=== PATIENT | male | born 1940 | race Caucasian/White ===

== ENCOUNTER 2021-02-06 10:49 | Day surgery (SDC) | payer MEDICARE, BC ==
[~2021-02-06] VITALS: Ht 185.4 cm; Wt 108.1 kg
[2021-02-06] VITALS (10 sets, daily range): BP systolic 120–182; BP diastolic 51–80
[2021-02-06] MEDS ORDERED: normal saline 1,000 ML IV SCH (11:25)
[2021-02-06] MEDS ORDERED: diphenhydrAMINE 25mg capsule PO PRN (11:25)
[2021-02-06] MEDS ORDERED: fenofibrate PO (11:51)
[2021-02-06] MEDS ORDERED: ROSU40TA PO (11:51)
[2021-02-06] MEDS ORDERED: HYDR-3965 PO (11:51)
[2021-02-06] MEDS ORDERED: OMEP20TA23 PO (11:51)
[2021-02-06] MEDS ORDERED: LISI20TA28 PO (11:51)
[2021-02-06] MEDS ORDERED: FLO0.4C PO (11:51)
[2021-02-06 12:12] LABS: BASOPHILS # (AUTO) 0.1 X10'3 (0-0.2); BASOPHILS % (AUTO) 0.8 % (0-1); EOSINOPHILS # (AUTO) 0.3 X10'3 (0-0.9); HEMATOCRIT 46.1 % (42.0-52.0); HEMOGLOBIN 15.3 g/dl (14.0-17.9); LYMPHOCYTES # (AUTO) 1.7 X10'3 (1.1-4.8); LYMPHOCYTES % (AUTO) 24.9 % (21-51); MEAN CORPUSCULAR HGB CONC 33.2 g/dL (33.0-36.5); MEAN CORPUSCULAR VOLUME 93.3 FL (78-98); MONOCYTES # (AUTO) 0.5 X10'3 (0-0.9); MONOCYTES % (AUTO) 6.8 % (2-12); NEUTROPHILS # (AUTO) 4.3 X10'3 (1.8-7.7); NEUTROPHILS % (AUTO) 63.5 % (42-75); PLATELET COUNT 253 X10'3 (140-440); RED BLOOD COUNT 4.94 X10'6 (4.70-6.10); WHITE BLOOD COUNT 6.7 X10'3 (4.5-11.0)
[2021-02-06 12:29] LABS: ALANINE AMINOTRANSFERASE 33 U/L (12-78); ALBUMIN 4.6 G/DL (3.4-5.0); ALBUMIN/GLOBULIN RATIO 1.2 (1.1-1.5); ALKALINE PHOSPHATASE 75 IU/L (46-116); ANION GAP 11 (8-16); ASPARTATE AMINO TRANSFERASE 27 U/L (10-37); BILIRUBIN,TOTAL 0.5 MG/DL (0.1-1.0); BLOOD UREA NITROGEN 18 MG/DL (7-18); BUN/CREATININE RATIO 15.4 (5.4-32.0); CALCIUM 9.5 MG/DL (8.5-10.1); CHLORIDE 101 MMOL/L (99-107); CREATININE 1.17 MG/DL (0.60-1.10); GLUCOSE 94 MG/DL (70-104); POTASSIUM 4.5 MMOL/L (3.5-5.1); SODIUM 138 MMOL/L (135-145); TOTAL CARBON DIOXIDE 26.3 MMOL/L (24-32); TOTAL PROTEIN 8.3 G/DL (6.4-8.2); eGFR 60 ML/MIN
[2021-02-06] MEDS ORDERED: verapamil 2.5 mg/ml inj IV ONE (12:58)
[2021-02-06] MEDS ORDERED: nitroGLYCERIN-Tridil 50MG/D5W 250 ML IV ONE (12:58)
[2021-02-06] MEDS ORDERED: midazolam 1 mg/ML 2ml injection ONE ×2 (12:58→13:28)
[2021-02-06] MEDS ORDERED: fentaNYL/PF 50MCG/1 ML 2ML syringe ONE (12:58)
[2021-02-06] MEDS ORDERED: LIDOcaine 1% (10mg/ml)w/preservative injection 20ml MDV ONE (12:59)
[2021-02-06] MEDS ORDERED: heparin 1,000unit/ml 10ml vial 10 ML ONE (12:59)
[2021-02-06] MEDS ORDERED: iohexol 350 MG/ML 50ML vial IV ONE (12:59)
[2021-02-06] MEDS ORDERED: iohexol 350MG/ML 100ml bottle IV ONE (12:59)
[2021-02-06] MEDS ORDERED: ondansetron/PF 4mg/2ml inj IV PRN (14:15)
[2021-02-06] MEDS ORDERED: HYDROcodone/acetaminophen 10/325mg tab PO PRN (14:20)
[2021-02-06] MEDS ORDERED: HYDROcodone/acetaminophen 5mg/325mg tablet PO PRN (14:20)
[2021-02-06] MEDS ORDERED: proCHLORperazine 10 MG/2 ml inj IV PRN (14:20)
== END 2021-02-06 17:30 | disposition home or self-care (01) ==
LOC: SSTAY O 10:49
PROVIDERS: ATTEND Internal Medicine Cardiovascular Disease
DX: R94.39 Abnormal result of other cardiovascular function study (principal); I25.10 Atherosclerotic heart disease of native coronary artery without angina pectoris; I44.1 Atrioventricular block, second degree; I45.10 Unspecified right bundle-branch block; I10 Essential (primary) hypertension; E78.5 Hyperlipidemia, unspecified; Z79.01 Long term (current) use of anticoagulants; Z95.0 Presence of cardiac pacemaker; Z79.899 Other long term (current) drug therapy
CPT/HCPCS: 36415; 80053; 85025; 85610; 93005; 93458; 93571; 99152; 99153; C1751; C1769; C1894; J1644; J2001; J2250; J3010; J7030; Q0163; Q9967; A4620; A5120; A6258; J3490

== ENCOUNTER 2021-06-12 06:28 | Day surgery (SDC) | payer MEDICARE, BC ==
[~2021-06-12] VITALS: Ht 185.4 cm; Wt 110.3 kg
[~2021-06-12 06:28] MED LIST: FLO0.4C PO; HYDR-3965 PO; LISI20TA28 PO; OMEP20TA23 PO; ROSU40TA PO; fenofibrate PO
[2021-06-12 07:00] VITALS: BP 140/77
[2021-06-12] MEDS ORDERED: FINA1TAB17 PO (07:04)
[2021-06-12] MEDS ORDERED: VANCOMYCIN 1,500MG inj. 1,500 MG in normal saline 250ml IV soln 300 ML IV ONE (07:15)
[2021-06-12] MEDS ORDERED: cefazolin/dext.iso 2gm/50ml 50 ML IV ONE (07:15)
[2021-06-12 07:51] LABS: ALBUMIN 3.5 G/DL (3.4-5.0); ANION GAP 8 (8-16); BLOOD UREA NITROGEN 22 MG/DL (7-18); BUN/CREATININE RATIO 18.3 (5.4-32.0); CHLORIDE 104 MMOL/L (99-107); GLUCOSE 103 MG/DL (70-104); MAGNESIUM 2.2 MG/DL (1.5-2.4); POTASSIUM 4.4 MMOL/L (3.5-5.1); SODIUM 139 MMOL/L (135-145); TOTAL CARBON DIOXIDE 27.4 MMOL/L (24-32); eGFR 58 ML/MIN
[2021-06-12 07:54] LABS: BASOPHILS % (AUTO) 0.7 % (0-1); EOSINOPHILS # (AUTO) 0.3 X10'3 (0-0.9); EOSINOPHILS % (AUTO) 6.4 % (0-6); HEMATOCRIT 40.8 % (42.0-52.0); HEMOGLOBIN 13.7 g/dl (14.0-17.9); LYMPHOCYTES # (AUTO) 1.5 X10'3 (1.1-4.8); LYMPHOCYTES % (AUTO) 28.2 % (21-51); MEAN CORPUSCULAR HEMOGLOBIN 30.7 PG (27.0-31.0); MEAN CORPUSCULAR HGB CONC 33.4 g/dL (33.0-36.5); MEAN CORPUSCULAR VOLUME 91.8 FL (78-98); MEAN PLATELET VOLUME 9.4 FL (7.4-10.4); MONOCYTES # (AUTO) 0.4 X10'3 (0-0.9); MONOCYTES % (AUTO) 7.8 % (2-12); NEUTROPHILS # (AUTO) 3.1 X10'3 (1.8-7.7); NEUTROPHILS % (AUTO) 56.9 % (42-75); PLATELET COUNT 224 X10'3 (140-440); RED BLOOD COUNT 4.45 X10'6 (4.70-6.10); RED CELL DISTRIBUTION WIDTH 14.4 % (11.5-14.5); WHITE BLOOD COUNT 5.4 X10'3 (4.5-11.0)
[2021-06-12] MEDS ORDERED: vancomycin 1,000mg inj ONE (08:31)
[2021-06-12] MEDS ORDERED: fentaNYL/PF 50MCG/1 ML 2ML syringe ONE (08:31)
[2021-06-12] MEDS ORDERED: midazolam 1 mg/ML 2ml injection ONE ×3 (08:31→10:20)
[2021-06-12] MEDS ORDERED: LIDOcaine 1% w/EPI 1:100,000 30ml vial (MDV) ONE ×2 (08:31→10:03)
[2021-06-12] MEDS ORDERED: iohexol 350 MG/ML 50ML vial IV ONE (08:31)
[2021-06-12 11:03] VITALS: BP 127/75
[2021-06-12 11:17] VITALS: BP 117/66
[2021-06-12] MEDS ORDERED: ketorolac tromethamine 15mg/ml inj. IV ONE (11:30)
[2021-06-12 11:37] VITALS: BP 116/52
[2021-06-12 11:47] VITALS: BP 127/68
[2021-06-12 12:17] VITALS: BP 129/51
[2021-06-12] MEDS ORDERED: ceFAZolin/D5W- 1GM premix 50 ML IV SCH (13:00)
== END 2021-06-12 13:00 | disposition home or self-care (01) ==
LOC: SSTAY O 06:28
PROVIDERS: ATTEND Internal Medicine Cardiovascular Disease
DX: I42.7 Cardiomyopathy due to drug and external agent (principal); I44.1 Atrioventricular block, second degree; I25.10 Atherosclerotic heart disease of native coronary artery without angina pectoris; I45.0 Right fascicular block; I10 Essential (primary) hypertension; E78.5 Hyperlipidemia, unspecified; N40.0 Benign prostatic hyperplasia without lower urinary tract symptoms; Z95.0 Presence of cardiac pacemaker; Z79.899 Other long term (current) drug therapy; Z96.612 Presence of left artificial shoulder joint; Z98.890 Other specified postprocedural states; Z87.891 Personal history of nicotine dependence
CPT/HCPCS: 33222; 36415; 80048; 83735; 85025; 85610; 93005; 99152; 99153; C1769; C1887; C1894; J2250; J3010; J3370; J3490; Q9967; A4620; A6258

== ENCOUNTER 2021-06-19 06:10 | Day surgery (SDC) | payer MEDICARE, BC ==
[2021-06-19] VITALS (7 sets, daily range): BP systolic 134–152; BP diastolic 55–72
[~2021-06-19] VITALS: Ht 185.4 cm; Wt 111.9 kg
[~2021-06-19 06:10] MED LIST changes: +FINA1TAB17 PO; +normal saline 1000ml 1,000 ML IV SCH
[2021-06-19] MEDS ORDERED: cefazolin/dext.iso 2gm/50ml IV ONE (06:56)
[2021-06-19] MEDS ORDERED: vancomycin 1,500 MG in NS 300ml IV soln IV ONE (06:57)
[2021-06-19 07:46] LABS: BASOPHILS # (AUTO) 0.1 X10'3 (0-0.2); BASOPHILS % (AUTO) 1.2 % (0-1); EOSINOPHILS # (AUTO) 0.4 X10'3 (0-0.9); EOSINOPHILS % (AUTO) 6.6 % (0-6); HEMATOCRIT 42.1 % (42.0-52.0); HEMOGLOBIN 14.3 g/dl (14.0-17.9); LYMPHOCYTES # (AUTO) 1.9 X10'3 (1.1-4.8); LYMPHOCYTES % (AUTO) 29.8 % (21-51); MEAN CORPUSCULAR HEMOGLOBIN 31.1 PG (27.0-31.0); MEAN CORPUSCULAR VOLUME 91.7 FL (78-98); MEAN PLATELET VOLUME 9.4 FL (7.4-10.4); MONOCYTES # (AUTO) 0.5 X10'3 (0-0.9); MONOCYTES % (AUTO) 7.6 % (2-12); NEUTROPHILS # (AUTO) 3.4 X10'3 (1.8-7.7); NEUTROPHILS % (AUTO) 54.8 % (42-75); PLATELET COUNT 238 X10'3 (140-440); RED BLOOD COUNT 4.59 X10'6 (4.70-6.10); RED CELL DISTRIBUTION WIDTH 14.6 % (11.5-14.5); WHITE BLOOD COUNT 6.2 X10'3 (4.5-11.0)
[2021-06-19 07:59] LABS: ALBUMIN 3.9 G/DL (3.4-5.0); ANION GAP 7 (8-16); BLOOD UREA NITROGEN 23 MG/DL (7-18); BUN/CREATININE RATIO 20.5 (5.4-32.0); CALCIUM 9.4 MG/DL (8.5-10.1); CHLORIDE 104 MMOL/L (99-107); CREATININE 1.12 MG/DL (0.60-1.10); GLUCOSE 104 MG/DL (70-104); MAGNESIUM 2.1 MG/DL (1.5-2.4); POTASSIUM 4.3 MMOL/L (3.5-5.1); SODIUM 138 MMOL/L (135-145); eGFR 63 ML/MIN
[2021-06-19] MEDS ORDERED: iohexol 350 MG/ML 50ML vial IV ONE ×3 (08:40→10:03)
[2021-06-19] MEDS ORDERED: LIDOcaine 1% w/EPI 1:100,000 30ml vial (MDV) ONE (08:40)
[2021-06-19] MEDS ORDERED: midazolam 1 mg/ML 2ml injection ONE ×6 (08:40→10:50)
[2021-06-19] MEDS ORDERED: fentaNYL/PF 50MCG/1 ML 2ML syringe ONE ×2 (08:40→10:45)
[2021-06-19] MEDS ORDERED: vancomycin 1,000mg inj ONE (08:41)
[2021-06-19] MEDS ORDERED: heparin 1,000 UNITS/NS 500ml 500 ML ONE (08:41)
[2021-06-19] MEDS ORDERED: HYDROcodone/acetaminophen 10/325mg tab PO PRN (11:35)
[2021-06-19] MEDS ORDERED: HYDROcodone/acetaminophen 5mg/325mg tablet PO PRN (11:35)
== END 2021-06-19 13:00 | disposition home or self-care (01) ==
LOC: SSTAY O 06:10
PROVIDERS: ATTEND Internal Medicine Cardiovascular Disease
DX: Z45.010 Encounter for checking and testing of cardiac pacemaker pulse generator [battery] (principal); I42.7 Cardiomyopathy due to drug and external agent; I44.1 Atrioventricular block, second degree; I25.10 Atherosclerotic heart disease of native coronary artery without angina pectoris; I45.10 Unspecified right bundle-branch block; I10 Essential (primary) hypertension; E78.5 Hyperlipidemia, unspecified; N40.0 Benign prostatic hyperplasia without lower urinary tract symptoms; Z96.612 Presence of left artificial shoulder joint; Z98.890 Other specified postprocedural states; Z79.899 Other long term (current) drug therapy
CPT/HCPCS: 33225; 33229; 36415; 71045; 80048; 83735; 85025; 85610; 93005; 99152; 99153; C1769; C1887; C1894; C1900; C2621; J1644; J2250; J3010; J3370; J3490; Q9967; A4565; A4620; A6258; C1882